=== PATIENT | male | born 1985 | race Caucasian/White ===

== ENCOUNTER 2019-05-08 18:25 | Emergency (ER) | payer MEDICAID ==
[~2019-05-08] VITALS: Ht 182.9 cm; Wt 84.0 kg
[~2019-05-08 18:25] MED LIST: BACDS PO; HYDR-3965 PO; HYDR-4383 PO
[2019-05-08 18:29] VITALS: BP 139/88
--- NOTE | 2019-05-08 19:45 | NUR ---
PA at bedside for eval
[2019-05-08] MEDS ORDERED: triamcinolone acetonide 40mg/ml inj IM ONE (19:55)
[2019-05-08] MEDS ORDERED: PRED10TA23 PO (19:59)
== END 2019-05-08 20:11 | disposition home or self-care (01) ==
LOC: ER 18:25
DX: L23.7 Allergic contact dermatitis due to plants, except food (principal); F11.90 Opioid use, unspecified, uncomplicated; F14.90 Cocaine use, unspecified, uncomplicated; F12.90 Cannabis use, unspecified, uncomplicated; F15.90 Other stimulant use, unspecified, uncomplicated; Z86.14 Personal history of Methicillin resistant Staphylococcus aureus infection; Z88.0 Allergy status to penicillin; Z79.2 Long term (current) use of antibiotics; Z79.899 Other long term (current) drug therapy
CPT/HCPCS: 96372; 99283; J3301

== ENCOUNTER 2019-05-10 19:36 | Emergency (ER) | payer MEDICAID ==
[~2019-05-10] VITALS: Ht 182.9 cm; Wt 84.0 kg
[~2019-05-10 19:36] MED LIST changes: +PRED10TA23 PO
[2019-05-10 19:38] VITALS: BP 129/82
[2019-05-10] MEDS ORDERED: DOXY100C76 PO (21:25)
[2019-05-10] MEDS ORDERED: azithromycin 250mg tablet PO ONE (21:25)
[2019-05-10] MEDS ORDERED: CefTRIAXone 1000mg IM Kit (w/lidocaine diluent) IM ONE (21:25)
[2019-05-14 06:14] LABS: RPR Reactive (Non Reactive)
== END 2019-05-10 22:04 | disposition home or self-care (01) ==
LOC: ER 19:36
DX: Z11.3 Encounter for screening for infections with a predominantly sexual mode of transmission (principal); Z20.2 Contact with and (suspected) exposure to infections with a predominantly sexual mode of transmission; F12.90 Cannabis use, unspecified, uncomplicated; F15.90 Other stimulant use, unspecified, uncomplicated; F14.90 Cocaine use, unspecified, uncomplicated; F11.90 Opioid use, unspecified, uncomplicated; F17.200 Nicotine dependence, unspecified, uncomplicated; Z87.11 Personal history of peptic ulcer disease; Z86.14 Personal history of Methicillin resistant Staphylococcus aureus infection; Z88.0 Allergy status to penicillin; Z79.899 Other long term (current) drug therapy
CPT/HCPCS: 36415; 86592; 87491; 87591; 96372; 99283; J0696

== ENCOUNTER 2019-05-20 18:23 | Emergency (ER) | payer MEDICAID ==
[~2019-05-20] VITALS: Ht 182.9 cm; Wt 86.3 kg
[~2019-05-20 18:23] MED LIST changes: +DOXY100C76 PO; -PRED10TA23 PO
[2019-05-20 18:24] VITALS: BP 141/76
== END 2019-05-20 18:53 | disposition home or self-care (01) ==
LOC: ER 18:24
DX: A53.9 Syphilis, unspecified (principal); F12.90 Cannabis use, unspecified, uncomplicated; F15.90 Other stimulant use, unspecified, uncomplicated; F14.90 Cocaine use, unspecified, uncomplicated; F11.90 Opioid use, unspecified, uncomplicated; Z87.11 Personal history of peptic ulcer disease; Z86.14 Personal history of Methicillin resistant Staphylococcus aureus infection; Z88.0 Allergy status to penicillin; Z79.899 Other long term (current) drug therapy
CPT/HCPCS: 99281

== ENCOUNTER 2019-05-28 18:06 | Emergency (ER) | payer MEDICAID ==
[~2019-05-28] VITALS: Ht 182.9 cm; Wt 85.0 kg
[~2019-05-28 18:06] MED LIST changes: -DOXY100C76 PO
[2019-05-28 18:29] VITALS: BP 147/91
== END 2019-05-28 22:34 | disposition home or self-care (01) ==
LOC: ER 18:06
DX: T23.251A Burn of second degree of right palm, initial encounter (principal); F12.90 Cannabis use, unspecified, uncomplicated; F15.90 Other stimulant use, unspecified, uncomplicated; F14.90 Cocaine use, unspecified, uncomplicated; F11.90 Opioid use, unspecified, uncomplicated; Z86.14 Personal history of Methicillin resistant Staphylococcus aureus infection; Z88.0 Allergy status to penicillin; Z79.899 Other long term (current) drug therapy; X08.8XXA Exposure to other specified smoke, fire and flames, initial encounter; Y93.89 Activity, other specified; Y92.89 Other specified places as the place of occurrence of the external cause; Y99.8 Other external cause status
CPT/HCPCS: 16000; 99284

== ENCOUNTER 2019-07-21 13:55 | Emergency (ER) | payer MEDICAID, OTHER ==
[~2019-07-21] VITALS: Ht 182.9 cm; Wt 84.0 kg
[2019-07-21] MEDS ORDERED: HYDROcodone/acetaminophen 10/325mg tab PO ONE (15:05)
[2019-07-21] MEDS ORDERED: ondansetron 4mg rapidly disintigrating tab PO ONE (15:05)
[2019-07-21] MEDS ORDERED: ibuprofen tablet 400 MG TABLET PO ONE (15:10)
[2019-07-21 16:06] VITALS: BP 127/74
== END 2019-07-21 16:24 | disposition home or self-care (01) ==
LOC: ER 13:55
DX: S42.101A Fracture of unspecified part of scapula, right shoulder, initial encounter for closed fracture (principal); F12.90 Cannabis use, unspecified, uncomplicated; F15.90 Other stimulant use, unspecified, uncomplicated; F11.90 Opioid use, unspecified, uncomplicated; F14.90 Cocaine use, unspecified, uncomplicated; Z87.11 Personal history of peptic ulcer disease; Z86.14 Personal history of Methicillin resistant Staphylococcus aureus infection; Z88.0 Allergy status to penicillin; Z79.899 Other long term (current) drug therapy; W18.39XA Other fall on same level, initial encounter; Y93.55 Activity, bike riding; Y92.89 Other specified places as the place of occurrence of the external cause; Y99.8 Other external cause status
CPT/HCPCS: 29105; 71250; 73030; 99284

== ENCOUNTER 2019-08-01 13:37 | Emergency (ER) | payer SELFPAY ==
[~2019-08-01] VITALS: Ht 182.9 cm; Wt 88.0 kg
[2019-08-01 14:12] VITALS: BP 115/83
== END 2019-08-01 14:28 | disposition left against medical advice (07) ==
LOC: ER 13:38
DX: Z48.01 Encounter for change or removal of surgical wound dressing (principal); Z53.21 Procedure and treatment not carried out due to patient leaving prior to being seen by health care provider

== ENCOUNTER 2019-08-03 19:29 | Emergency (ER) | payer MEDICAID, OTHER ==
[~2019-08-03] VITALS: Ht 182.9 cm; Wt 83.0 kg
[2019-08-03 19:38] VITALS: BP 124/72
== END 2019-08-03 21:10 | disposition home or self-care (01) ==
LOC: ER 19:29
DX: S42.101D Fracture of unspecified part of scapula, right shoulder, subsequent encounter for fracture with routine healing (principal); F17.200 Nicotine dependence, unspecified, uncomplicated; F12.90 Cannabis use, unspecified, uncomplicated; F14.90 Cocaine use, unspecified, uncomplicated; F11.90 Opioid use, unspecified, uncomplicated; Z88.0 Allergy status to penicillin; Z76.89 Persons encountering health services in other specified circumstances; Z86.14 Personal history of Methicillin resistant Staphylococcus aureus infection; Z79.899 Other long term (current) drug therapy; X58.XXXD Exposure to other specified factors, subsequent encounter
CPT/HCPCS: 99281

== ENCOUNTER 2019-12-18 12:53 | Emergency (ER) | payer MEDICAID, OTHER ==
[~2019-12-18] VITALS: Ht 182.9 cm; Wt 83.0 kg
[2019-12-18 13:42] VITALS: BP 114/70
[2019-12-18] MEDS ORDERED: CLIN300C70 PO (14:44)
[2019-12-18] MEDS ORDERED: IBUP-1984 PO (14:44)
--- NOTE | 2019-12-18 15:05 | NUR ---
Patient seen and assessed by provider.
== END 2019-12-18 15:12 | disposition home or self-care (01) ==
LOC: ER 12:53
DX: K04.7 Periapical abscess without sinus (principal); K02.9 Dental caries, unspecified; F12.90 Cannabis use, unspecified, uncomplicated; F15.90 Other stimulant use, unspecified, uncomplicated; F14.90 Cocaine use, unspecified, uncomplicated; F11.90 Opioid use, unspecified, uncomplicated; Z86.14 Personal history of Methicillin resistant Staphylococcus aureus infection; Z88.0 Allergy status to penicillin; Z79.899 Other long term (current) drug therapy
CPT/HCPCS: 99283

== ENCOUNTER 2020-10-28 21:45 | Emergency (ER) | payer MEDICAID ==
[~2020-10-28] VITALS: Ht 182.9 cm; Wt 86.4 kg
[2020-10-28 21:53] VITALS: BP 118/71
[2020-10-28] MEDS ORDERED: PRED10TA23 PO (23:29)
[2020-10-28] MEDS ORDERED: dexamethasone 4mg tablet PO ONE (23:30)
== END 2020-10-28 23:55 | disposition home or self-care (01) ==
LOC: ER 21:46
DX: L23.7 Allergic contact dermatitis due to plants, except food (principal); F12.90 Cannabis use, unspecified, uncomplicated; F15.90 Other stimulant use, unspecified, uncomplicated; F14.90 Cocaine use, unspecified, uncomplicated; F11.90 Opioid use, unspecified, uncomplicated; Z87.11 Personal history of peptic ulcer disease; Z86.14 Personal history of Methicillin resistant Staphylococcus aureus infection; Z88.0 Allergy status to penicillin; Z79.2 Long term (current) use of antibiotics; Z79.899 Other long term (current) drug therapy
CPT/HCPCS: 99283